=== PATIENT | male | born 1965 | race Hispanic/Latino ===

== ENCOUNTER 2019-01-20 15:12 | Emergency (ER) | payer SELFPAY ==
[2019-01-20] MEDS ORDERED: KETOROLAC TROMETHAMINE 60 MG/2 ML VIAL ONE (15:59)
[2019-01-20] MEDS ORDERED: DEXAMETHASONE SOD PHOSPHATE 10MG/ML 1ML VIAL ONE (15:59)
== END 2019-01-20 16:18 | disposition home or self-care (01) ==
LOC: EDH 15:12
DX: M54.42 Lumbago with sciatica, left side (principal); Z98.52 Vasectomy status
CPT/HCPCS: 96372 ×2; 99284; J1100; J1885

== ENCOUNTER 2023-02-21 18:39 | Inpatient (IN) | payer OTHER ==
[~2023-02-21] VITALS: Ht 180.3 cm; Wt 96.7 kg
[2023-02-21 20:29] LABS: BASOPHILS % (AUTO) 0.8 % (0.0-5.0); EOSINOPHILS % (AUTO) 2.3 % (0.0-8.0); HEMATOCRIT 43.5 % (42-54); LYMPHOCYTES % (AUTO) 28.5 % (21.0-51.0); MEAN CORPUSCULAR HEMOGLOBIN 28.3 pg (27.0-33.0); MEAN CORPUSCULAR HGB CONC 32.6 g/dL (32.0-36.0); MEAN CORPUSCULAR VOLUME 86.8 fL (79-99); NEUTROPHILS % (AUTO) 54.8 % (40.0-77.0); PLATELET COUNT (AUTO) 285 K/uL (130-400); RED BLOOD CELL COUNT(AUTO) 5.01 MIL/uL (4.50-6.20); RED CELL DISTRIBUTION WIDTH 14.2 % (11.0-15.5); WHITE BLOOD COUNT (AUTO) 6.2 K/uL (4.8-10.8)
[2023-02-21] MEDS ORDERED: ACETAMINOPHEN 500 MG TABLET PO ONE (20:30)
[2023-02-21 20:45] LABS: ALBUMIN 3.7 g/dL (3.5-5.0); CREATININE 1.4 mg/dL (0.5-1.5)
[2023-02-21 20:51] LABS: APPEARANCE,URINE CLOUDY (CLEAR); BILIRUBIN,URINE 0.5 mg/dL (NEGATIVE); COLOR,URINE YELLOW (YELLOW); GLUCOSE, URINE (UA) NEGATIVE (NEGATIVE); KETONES,URINE 5 mg/dL (NEGATIVE); LEUKOCYTE ESTERASE ,URINE 75 Leu/uL (NEGATIVE); NITRATE,URINE NEGATIVE (NEGATIVE); OCCULT BLOOD,URINE NEGATIVE (NEGATIVE); PH,URINE 5.5 (5.0-8.0); PROTEIN,URINE 100 mg/dL (NEGATIVE)
[2023-02-21] MEDS ORDERED: NITROGLYCERIN 1GM OINT 1 INCH/1GM TD ONE (21:00)
[2023-02-21] MEDS ORDERED: ASPIRIN 325MG TAB PO ONE (21:00)
[2023-02-21] MEDS ORDERED: ALBUTEROL 0.083% 2.5 MG/3 ML INH IH ONE (21:00)
[2023-02-21 21:03] LABS: BACTERIA,URINE MOD /HPF (None Seen); HYALINE CASTS, URINE 51-100 /LPF (0-1 /LPF); MUCUS,URINE RARE LPF (None Seen); SQUAMOUS EPITHELIAL CELL,UR MOD /HPF (0-2)
[2023-02-21] MEDS ORDERED: POTASSIUM BICARB/CIT AC 25 MEQ TABLET.EFF PO ONE (22:00)
[2023-02-21] MEDS ORDERED: HYDROMORPHONE 1 MG INJ IV PRN (22:30)
[2023-02-21] MEDS ORDERED: LACTATED RINGERS 1000ML 2,259 ML IV ONE (22:30)
[2023-02-21] MEDS ORDERED: CEFTRIAXONE 2GM VIAL IVPB ONE (22:30)
[2023-02-21] MEDS ORDERED: 0.9%NACL 1000ML 2,259 ML IV ONE (22:30)
[2023-02-21] MEDS ORDERED: ACETAMINOPHEN 325 MG TAB PO PRN (22:30)
[2023-02-21] MEDS ORDERED: CEFTRIAXONE 1G VIAL 2 GM in 0.9%NACL 100ML 100 ML IV SCH (22:30)
[2023-02-21] MEDS: POTASSIUM CHLORIDE 20MEQ/100ML 100 ML IV PRN (22:56)
[2023-02-21] MEDS: MAGNESIUM 2GM PREMIX 50ML 50 ML IV PRN (23:30)
[2023-02-21] MEDS: PHARMACY COMMUNICATION MISC SCH (23:30)
[2023-02-22] MEDS ORDERED: HYDROXYZINE 25 MG TABLET PO ONE (00:30)
[2023-02-22] MEDS: PHARMACY COMMUNICATION MISC SCH (05:30)
[2023-02-22] MEDS: INSULIN HUMULIN R 100 UNIT/ML 3ML SQ SCH ×4 (07:30→20:17)
[2023-02-22 07:50] LABS: HEMOGLOBIN A1C 6.5 % (4.0-6.0)
[2023-02-22] MEDS ORDERED: PHARMACY COMMUNICATION MISC SCH (08:00)
[2023-02-22 08:02] LABS: CREATININE 0.9 mg/dL (0.5-1.5); MAGNESIUM 1.4 mg/dL (1.80-2.40); PHOSPHORUS 4.5 mg/dL (2.5-4.9)
[2023-02-22 08:18] LABS: POTASSIUM 2.7 mmol/L (3.5-5.1)
[2023-02-22 08:33] LABS: B-TYPE NATRIURETIC PEPTIDE < 5 pg/mL (0-100)
[2023-02-22] MEDS: FAMOTIDINE 20MG TAB PO SCH ×2 (08:35→20:16)
[2023-02-22] MEDS: ENOXAPARIN SODIUM 40 MG/0.4 ML SYRINGE SQ SCH (08:36)
[2023-02-22] MEDS: POTASSIUM CHLORIDE 20MEQ/100ML 100 ML IV PRN ×2 (08:36→18:58)
[2023-02-22 08:59] LABS: BASOPHILS % (AUTO) 1.1 % (0.0-5.0); EOSINOPHILS % (AUTO) 2.7 % (0.0-8.0); HEMATOCRIT 35.9 % (42-54); LYMPHOCYTES % (AUTO) 32.2 % (21.0-51.0); MEAN CORPUSCULAR HEMOGLOBIN 29.6 pg (27.0-33.0); MEAN CORPUSCULAR HGB CONC 34.8 g/dL (32.0-36.0); MEAN CORPUSCULAR VOLUME 85.1 fL (79-99); MONOCYTES % (AUTO) 15.9 % (3.0-13.0); NEUTROPHILS % (AUTO) 47.6 % (40.0-77.0); PLATELET COUNT (AUTO) 402 K/uL (130-400); RED BLOOD CELL COUNT(AUTO) 4.22 MIL/uL (4.50-6.20); RED CELL DISTRIBUTION WIDTH 14.4 % (11.0-15.5); WHITE BLOOD COUNT (AUTO) 3.7 K/uL (4.8-10.8)
[2023-02-22 09:30] VITALS: BP 146/93
[2023-02-22 10:09] LABS: BASOPHILS % (MANUAL) 1 % (0-2); EOSINOPHILS % (MANUAL) 4 % (1-6); LYMPHOCYTES % (MANUAL) 34 % (22-44); MAN.DIFF COMMENT-IMPRESSION MANUAL DIFFERENTIAL; MONOCYTES % (MANUAL) 7 % (2-9); REACTIVE LYMPHOCYTES 2 % (0-0); SEGMENTED NEUTROPHILS % 52 % (40-70)
[2023-02-22 10:10] LABS: PLATELET MORPHOLOGY COMMENT SLIGHT INCREASED
[2023-02-22 12:00] VITALS: BP 137/86
[2023-02-22] MEDS ORDERED: METF-446 PO (12:08)
[2023-02-22] MEDS ORDERED: LEVO-70 PO (12:10)
[2023-02-22] MEDS ORDERED: BUME1TAB6 PO (12:14)
[2023-02-22] MEDS ORDERED: HYDR25TA PO (12:14)
[2023-02-22] MEDS ORDERED: OMEP40CA21 PO (12:14)
[2023-02-22] MEDS ORDERED: CELE200 PO (12:14)
[2023-02-22 16:00] VITALS: BP 145/89
[2023-02-22 19:22] VITALS: BP 153/87
[2023-02-22] MEDS: ATORVASTATIN 40 MG TABLET PO SCH (20:16)
[2023-02-22] MEDS: KCL 20 MEQ ERTAB PO PRN ×2 (20:17→23:39)
[2023-02-22] MEDS: HYDROCODONE/ACETAMINOPHEN 5/325 MG TAB PO PRN ×2 (20:17→23:41)
[2023-02-22] MEDS: POTASSIUM CHLORIDE 10% ELIXIR 20 MEQ/15 ML UDCUP PO PRN ×2 (20:17→23:39)
[2023-02-22 23:24] VITALS: BP 144/84
[2023-02-22] MEDS: CEFTRIAXONE 2GM VIAL IVPB SCH (23:39)
[2023-02-23 03:35] VITALS: BP 136/83
[2023-02-23] MEDS: INSULIN HUMULIN R 100 UNIT/ML 3ML SQ SCH ×4 (06:39→21:28)
[2023-02-23 07:59] LABS: EOSINOPHILS % (AUTO) 3.3 % (0.0-8.0); HEMATOCRIT 40.1 % (42-54); LYMPHOCYTES % (AUTO) 31.5 % (21.0-51.0); MEAN CORPUSCULAR HEMOGLOBIN 28.5 pg (27.0-33.0); MEAN CORPUSCULAR HGB CONC 32.2 g/dL (32.0-36.0); MEAN CORPUSCULAR VOLUME 88.7 fL (79-99); NEUTROPHILS % (AUTO) 48.9 % (40.0-77.0); PLATELET COUNT (AUTO) 238 K/uL (130-400); RED BLOOD CELL COUNT(AUTO) 4.52 MIL/uL (4.50-6.20); RED CELL DISTRIBUTION WIDTH 14.2 % (11.0-15.5); WHITE BLOOD COUNT (AUTO) 3.9 K/uL (4.8-10.8)
[2023-02-23 08:00] VITALS: BP 143/101
[2023-02-23 08:26] LABS: CREATININE 0.9 mg/dL (0.5-1.5); CRP QUANTITATIVE 27.7 mg/L (0.00-9.0); MAGNESIUM 1.4 mg/dL (1.80-2.40); PHOSPHORUS 4.1 mg/dL (2.5-4.9); POTASSIUM 3.4 mmol/L (3.5-5.1)
[2023-02-23] MEDS ORDERED: KCL 20 MEQ ERTAB PO SCH (08:30)
[2023-02-23] MEDS ORDERED: TRAMADOL HCL 50 MG TABLET PO PRN (09:00)
[2023-02-23] MEDS ORDERED: CELECOXIB 200 MG CAP PO PRN (09:00)
[2023-02-23] MEDS: METOPROLOL SUCCINATE 25 MG TAB.SR.24H PO SCH (09:36)
[2023-02-23] MEDS: TRAMADOL HCL 50 MG TABLET PO PRN (09:36)
[2023-02-23] MEDS: FAMOTIDINE 20MG TAB PO SCH ×2 (09:36→21:24)
[2023-02-23] MEDS: KCL 20 MEQ ERTAB PO PRN ×2 (09:36→13:32)
[2023-02-23] MEDS: ENOXAPARIN SODIUM 40 MG/0.4 ML SYRINGE SQ SCH (09:36)
[2023-02-23] MEDS: BUMETANIDE 1 MG TAB PO SCH (09:36)
[2023-02-23 09:38] LABS: ERYTHROCYTE SEDIMENTATION RATE 30 MM/HR (0-20)
[2023-02-23 12:00] VITALS: BP 156/66
[2023-02-23] MEDS: SPIRONOLACTONE 25 MG TAB PO SCH (13:31)
[2023-02-23] MEDS: ONDANSETRON 4MG INJ IV PRN (13:32)
[2023-02-23 16:00] VITALS: BP 129/80
[2023-02-23 20:00] VITALS: BP 140/92
[2023-02-23] MEDS: ATORVASTATIN 40 MG TABLET PO SCH (21:24)
[2023-02-23] MEDS: CEFTRIAXONE 2GM VIAL IVPB SCH (21:26)
[2023-02-24] VITALS: BP 143/93
[2023-02-24] MEDS: MAGNESIUM 2GM PREMIX 50ML 50 ML IV PRN ×2 (00:16→05:31)
[2023-02-24] MEDS: ONDANSETRON 4MG INJ IV PRN (03:54)
[2023-02-24 04:00] VITALS: BP 127/79
[2023-02-24 05:05] LABS: BASOPHILS % (AUTO) 0.9 % (0.0-5.0); EOSINOPHILS % (AUTO) 2.8 % (0.0-8.0); HEMATOCRIT 38.5 % (42-54); LYMPHOCYTES % (AUTO) 33.7 % (21.0-51.0); MEAN CORPUSCULAR HEMOGLOBIN 28.3 pg (27.0-33.0); MEAN CORPUSCULAR HGB CONC 31.9 g/dL (32.0-36.0); MEAN CORPUSCULAR VOLUME 88.7 fL (79-99); MONOCYTES % (AUTO) 16.3 % (3.0-13.0); NEUTROPHILS % (AUTO) 45.6 % (40.0-77.0); PLATELET COUNT (AUTO) 249 K/uL (130-400); RED BLOOD CELL COUNT(AUTO) 4.34 MIL/uL (4.50-6.20); RED CELL DISTRIBUTION WIDTH 13.8 % (11.0-15.5); WHITE BLOOD COUNT (AUTO) 4.6 K/uL (4.8-10.8)
[2023-02-24 05:21] LABS: CRP QUANTITATIVE 29.2 mg/L (0.00-9.0); MAGNESIUM 1.7 mg/dL (1.80-2.40); PHOSPHORUS 4.3 mg/dL (2.5-4.9); POTASSIUM 3.2 mmol/L (3.5-5.1)
[2023-02-24] MEDS: KCL 20 MEQ ERTAB PO PRN ×2 (05:31→15:49)
[2023-02-24 06:39] LABS: ERYTHROCYTE SEDIMENTATION RATE 31 MM/HR (0-20)
[2023-02-24] MEDS: INSULIN HUMULIN R 100 UNIT/ML 3ML SQ SCH ×4 (06:41→20:37)
[2023-02-24 08:00] VITALS: BP 150/99
[2023-02-24] MEDS: FAMOTIDINE 20MG TAB PO SCH ×2 (08:43→21:32)
[2023-02-24] MEDS: BUMETANIDE 1 MG TAB PO SCH (08:43)
[2023-02-24] MEDS: ACETAMINOPHEN 325 MG TAB PO PRN ×2 (08:44→21:37)
[2023-02-24] MEDS: SPIRONOLACTONE 25 MG TAB PO SCH (08:44)
[2023-02-24] MEDS: METOPROLOL SUCCINATE 25 MG TAB.SR.24H PO SCH (08:44)
[2023-02-24] MEDS: ENOXAPARIN SODIUM 40 MG/0.4 ML SYRINGE SQ SCH (08:45)
[2023-02-24] MEDS: TRAMADOL HCL 50 MG TABLET PO PRN (09:16)
[2023-02-24 09:47] LABS: THYROID STIMULATING HORMONE 1.68 uIU/mL (0.36-3.74)
[2023-02-24 12:00] VITALS: BP 128/82
[2023-02-24 15:07] LABS: PROTEIN,URINE RANDOM 21.4 mg/dL (0-11.9)
[2023-02-24 16:00] VITALS: BP 137/74
[2023-02-24 20:00] VITALS: BP 140/81
[2023-02-24] MEDS: CEFTRIAXONE 2GM VIAL IVPB SCH (21:32)
[2023-02-24] MEDS: ATORVASTATIN 40 MG TABLET PO SCH (21:33)
[2023-02-25] VITALS: BP 127/83
[2023-02-25] MEDS ORDERED: ZOLPIDEM TARTRATE 5 MG TAB PO PRN (02:00)
[2023-02-25 04:00] VITALS: BP 129/83
[2023-02-25] MEDS: INSULIN HUMULIN R 100 UNIT/ML 3ML SQ SCH ×4 (05:57→21:11)
[2023-02-25 08:00] VITALS: BP 128/69
[2023-02-25] MEDS: BUMETANIDE 1 MG TAB PO SCH (10:14)
[2023-02-25] MEDS: METOPROLOL SUCCINATE 25 MG TAB.SR.24H PO SCH (10:14)
[2023-02-25] MEDS: ENOXAPARIN SODIUM 40 MG/0.4 ML SYRINGE SQ SCH (10:14)
[2023-02-25] MEDS: SPIRONOLACTONE 25 MG TAB PO SCH (10:14)
[2023-02-25] MEDS: FAMOTIDINE 20MG TAB PO SCH ×2 (10:14→19:58)
[2023-02-25 12:00] VITALS: BP 124/86
[2023-02-25 17:22] VITALS: BP 132/79
[2023-02-25] MEDS: ACETAMINOPHEN 325 MG TAB PO PRN (18:34)
[2023-02-25] MEDS: ATORVASTATIN 40 MG TABLET PO SCH (19:59)
[2023-02-25] MEDS: ONDANSETRON 4MG INJ IV PRN (19:59)
[2023-02-25 20:00] VITALS: BP 143/74
[2023-02-25] MEDS: TRAMADOL HCL 50 MG TABLET PO PRN (20:02)
[2023-02-25] MEDS: CEFTRIAXONE 2GM VIAL IVPB SCH (21:00)
[2023-02-26] VITALS: BP 123/81
[2023-02-26 04:00] VITALS: BP 111/62
[2023-02-26 05:02] LABS: HEMATOCRIT 39.6 % (42-54); MEAN CORPUSCULAR HEMOGLOBIN 28.5 pg (27.0-33.0); MEAN CORPUSCULAR HGB CONC 31.8 g/dL (32.0-36.0); MEAN CORPUSCULAR VOLUME 89.6 fL (79-99); RED BLOOD CELL COUNT(AUTO) 4.42 MIL/uL (4.50-6.20); WHITE BLOOD COUNT (AUTO) 4.2 K/uL (4.8-10.8)
[2023-02-26 05:08] LABS: CREATININE 0.9 mg/dL (0.5-1.5); MAGNESIUM 1.3 mg/dL (1.80-2.40); PHOSPHORUS 4.7 mg/dL (2.5-4.9); POTASSIUM 3.4 mmol/L (3.5-5.1); URIC ACID 7.1 mg/dL (2.6-7.2)
[2023-02-26] MEDS: INSULIN HUMULIN R 100 UNIT/ML 3ML SQ SCH ×3 (05:36→16:30)
[2023-02-26] MEDS: MAGNESIUM 2GM PREMIX 50ML 50 ML IV PRN (05:47)
[2023-02-26] MEDS: KCL 20 MEQ ERTAB PO PRN (05:49)
[2023-02-26 08:00] VITALS: BP 103/66
[2023-02-26] MEDS ORDERED: Vitamin B Complex/Vit C/Folic Acid PO SCH (09:00)
[2023-02-26] MEDS ORDERED: DRONABINOL 2.5 MG CAP PO ONE (09:00)
[2023-02-26] MEDS: SPIRONOLACTONE 25 MG TAB PO SCH (09:02)
[2023-02-26] MEDS: ENOXAPARIN SODIUM 40 MG/0.4 ML SYRINGE SQ SCH (09:02)
[2023-02-26] MEDS: BUMETANIDE 1 MG TAB PO SCH (09:02)
[2023-02-26] MEDS: ACETAMINOPHEN 325 MG TAB PO PRN (09:04)
[2023-02-26] MEDS: METOPROLOL SUCCINATE 25 MG TAB.SR.24H PO SCH (09:05)
[2023-02-26] MEDS: FAMOTIDINE 20MG TAB PO SCH (09:05)
[2023-02-26] MEDS: ONDANSETRON 4MG INJ IV PRN (09:18)
[2023-02-26 11:51] VITALS: BP 117/77
[2023-02-26] MEDS ORDERED: AMOX1TAB16 PO (13:32)
[2023-02-26] MEDS ORDERED: SPIR25TA PO (14:05)
[2023-02-26] MEDS ORDERED: MAGN400T25 PO (14:05)
== END 2023-02-26 17:00 | disposition home or self-care (01) | DRG 871 ==
LOC: EDH 18:39 → EDHIP 18:40 → 4CH 02-22 09:49
PROVIDERS: ADMIT Hospitalist; ATTEND Hospitalist
DX: A41.9 Sepsis, unspecified organism (principal); I50.33 Acute on chronic diastolic (congestive) heart failure; E87.1 Hypo-osmolality and hyponatremia; Z68.41 Body mass index [BMI] 40.0-44.9, adult; E11.9 Type 2 diabetes mellitus without complications; K57.30 Diverticulosis of large intestine without perforation or abscess without bleeding; M19.011 Primary osteoarthritis, right shoulder; M19.012 Primary osteoarthritis, left shoulder; E66.01 Morbid (severe) obesity due to excess calories; E83.42 Hypomagnesemia; E87.6 Hypokalemia; I11.0 Hypertensive heart disease with heart failure; K42.9 Umbilical hernia without obstruction or gangrene; Z60.2 Problems related to living alone; K76.0 Fatty (change of) liver, not elsewhere classified; M54.32 Sciatica, left side; N19 Unspecified kidney failure; Z79.899 Other long term (current) drug therapy; Z88.5 Allergy status to narcotic agent
CPT/HCPCS: 36415; 71045; 73030; 74176; 80048; 80053; 81001; 82550; 82570; 82948; 83036; 83605; 83690; 83735; 83880; 84100; 84132; 84145; 84156; 84439; 84443; 84484; 84550; 85025; 85027; 85651; 86038; 86140; 86160; 86215; 86235; 87040; 87088; 87340; 87350; 93005; 93306; 93970; 94640; G0378; J0696; J1650; J1815; J2405; J3475; J3480; J7030; Q0167

== ENCOUNTER 2023-02-27 11:04 | Emergency (ER) | payer OTHER ==
[~2023-02-27] VITALS: Ht 180.3 cm; Wt 142.9 kg
[~2023-02-27 11:04] MED LIST: AMOX1TAB16 PO; BUME1TAB6 PO; MAGN400T25 PO; METF-446 PO; OMEP40CA21 PO
[2023-02-27] MEDS ORDERED: FAMOTIDINE 20MG VIAL IV ONE (11:30)
[2023-02-27] MEDS ORDERED: KETOROLAC 30MG VIAL (30MG/ML) IVP ONE (11:30)
[2023-02-27] MEDS ORDERED: METOCLOPRAMIDE 10 MG/2 ML VIAL IVP ONE (11:30)
[2023-02-27 12:02] LABS: BASOPHILS % (AUTO) 1.1 % (0.0-5.0); EOSINOPHILS % (AUTO) 3.1 % (0.0-8.0); HEMATOCRIT 40.6 % (42-54); LYMPHOCYTES % (AUTO) 31.2 % (21.0-51.0); MEAN CORPUSCULAR HEMOGLOBIN 28.5 pg (27.0-33.0); MEAN CORPUSCULAR HGB CONC 32.8 g/dL (32.0-36.0); MEAN CORPUSCULAR VOLUME 86.9 fL (79-99); MONOCYTES % (AUTO) 12.7 % (3.0-13.0); NEUTROPHILS % (AUTO) 51.5 % (40.0-77.0); PLATELET COUNT (AUTO) 276 K/uL (130-400); RED BLOOD CELL COUNT(AUTO) 4.67 MIL/uL (4.50-6.20); RED CELL DISTRIBUTION WIDTH 14.1 % (11.0-15.5); WHITE BLOOD COUNT (AUTO) 4.6 K/uL (4.8-10.8)
[2023-02-27 12:03] LABS: APPEARANCE,URINE CLEAR (CLEAR); BILIRUBIN,URINE NEGATIVE (NEGATIVE); COLOR,URINE YELLOW (YELLOW); GLUCOSE, URINE (UA) NEGATIVE (NEGATIVE); KETONES,URINE 5 mg/dL (NEGATIVE); LEUKOCYTE ESTERASE ,URINE NEGATIVE Leu/uL (NEGATIVE); NITRATE,URINE NEGATIVE (NEGATIVE); OCCULT BLOOD,URINE NEGATIVE (NEGATIVE); PROTEIN,URINE 30 mg/dL (NEGATIVE); UROBILINOGEN,URINE 0.2 mg/dL (0.2-1.0)
[2023-02-27 12:12] LABS: INR 1.1 (0.85-1.15); PROTHROMBIN TIME 11.9 SEC (9.6-11.6)
[2023-02-27 12:13] LABS: PARTIAL THROMBOPLASTIN TIME 30.1 SEC (26.3-35.5)
[2023-02-27 12:18] LABS: ALBUMIN 3.2 g/dL (3.5-5.0); CREATININE 1.1 mg/dL (0.5-1.5); TOTAL PROTEIN, SERUM 6.9 g/dL (6.0-8.3)
[2023-02-27 12:36] LABS: BACTERIA,URINE FEW /HPF (None Seen); MUCUS,URINE RARE LPF (None Seen); OTHER CASTS, URINE 1 /LPF (None Seen); RBC,URINE 0-1 /HPF (0-1); RENAL EPITHELIAL CELLS,URINE FEW /HPF (None Seen); SQUAMOUS EPITHELIAL CELL,UR RARE /HPF (0-2)
[2023-02-27] MEDS ORDERED: POTASSIUM BICARB/CIT AC 25 MEQ TABLET.EFF PO ONE (13:00)
[2023-02-27 13:01] LABS: MAGNESIUM 1.5 mg/dL (1.80-2.40)
[2023-02-27 13:23] LABS: THYROID STIMULATING HORMONE 1.94 uIU/mL (0.36-3.74)
[2023-02-27 14:21] VITALS: BP 127/89
== END 2023-02-27 14:35 | disposition home or self-care (01) ==
LOC: EDH 11:04
DX: E87.6 Hypokalemia (principal); Z79.84 Long term (current) use of oral hypoglycemic drugs; Z79.899 Other long term (current) drug therapy; Z98.890 Other specified postprocedural states; Z88.5 Allergy status to narcotic agent; Z88.8 Allergy status to other drugs, medicaments and biological substances
CPT/HCPCS: 99285; 74176; 96374; 71045; 96375; 84443; 82550; 83735; 84484; 80053; 83690; 85025; 85610; 85730; 87088; 83605; 81001; 36415; 93005; J3490; J1885; J2765